=== PATIENT | male | born 1955 | race Caucasian/White ===

== ENCOUNTER → 2018-09-17 | Outpatient (CLI) | payer OTHER, SELFPAY ==
[2018-09-17 17:46] LABS: Absolute Lymphocyte Count 1.23 X10^3/uL (0.83-4.51); Absolute Neutrophil Count 3.1 X10^3/uL (2.0-7.7); Basophil# 0.05 X10^3/uL; Eosinophil# 0.09 X10^3/uL; Eosinophils% 1.9 % (0-5); Hematocrit 46.5 % (40-54); Hemoglobin 15.7 g/dL (13.0-16.5); Lymphocyte # 1.23 X10^3/ul (4.0); Lymphocyte % 25.7 % (19-41); Mean Corp Hgb Conc 33.8 g/dL (32-36); Mean Corpuscular Hgb 28.9 pg (27.0-32.0); Mean Corpuscular Volume 85.6 fL (80-94); Mean Platelet Vol. 10.9 fl (6.2-12.0); Monocyte# 0.29 X10^3/uL; Monocyte% 6.1 % (0-10); NRBC Flagged by Analyzer 0 % (0-5); Neutrophil # 3.12 X10^3/uL (2.7-7.7); Neutrophil % 65.1 % (47-70); Platelet Count 147 K/mm3 (150-450); RBC Distribution Width CV 12.7 % (11.6-14.6); Red Blood Count 5.43 M/mm3 (4.6-6.2); White Blood Count 4.8 K/mm3 (4.4-11.0)
[2018-09-17 18:08] LABS: Anion Gap 8 (5-15); BUN 18 mg/dL (7-18); BUN/Creat Ratio 18.8 RATIO (10-20); Calcium,Total 8.6 mg/dL (8.5-10.1); Chloride 106 mmol/L (98-107); Creatinine, Serum 0.96 mg/dL (0.70-1.30); EST Glomerular Filtration Rate 85 mL/min (>60); Est Glom Filt Rate - Afr Amer 102 mL/min (>60); Glucose 95 mg/dL (74-106); Potassium 4.6 mmol/L (3.5-5.1); Sodium Level 142 mmol/L (136-145)
== END | disposition home or self-care (01) ==
LOC: MFPLAB 16:50
PROVIDERS: Family Provider Family Medicine; PCP Family Medicine; Referring Provider Family Medicine; Visit Provider Family Medicine
DX: R10.32 Left lower quadrant pain (principal)
CPT/HCPCS: 36415; 80048; 85025

== ENCOUNTER → 2019-01-06 11:10 | Outpatient (CLI) | payer OTHER, SELFPAY ==
--- NOTE | 2019-01-06 11:14 | RAD_ITS ---
STUDY: X-RAY - RIGHT CALCANEUS REASON FOR EXAM: Male, 63 years old. Pain. TECHNIQUE: 2 view(s) of the calcaneus were obtained. COMPARISON: None. FINDINGS: Normal visualized calcaneus. There is a small plantar calcaneal spur. There is no demonstrated fracture. RAD/Calcaneus min 2 Views IMPRESSION: No acute pneumonia. Small plantar spur. Electronically Signed: Samy Castillo MD at 17:46 EST , Service support ,
== END ==
LOC: MTRAD 11:13
PROVIDERS: Family Provider Family Medicine; PCP Family Medicine; Referring Provider Family Medicine; Visit Provider Family Medicine
DX: M79.671 Pain in right foot (principal)
CPT/HCPCS: 73650

== ENCOUNTER → 2019-03-08 09:14 | Outpatient (CLI) | payer OTHER, SELFPAY ==
[2019-03-08 11:00] LABS: Anion Gap 6 (5-15); BUN 18 mg/dL (7-18); BUN/Creat Ratio 20.4 RATIO (10-20); Calcium,Total 8.6 mg/dL (8.5-10.1); Chloride 109 mmol/L (98-107); Cholesterol 192 mg/dL (200); Creatinine, Serum 0.88 mg/dL (0.70-1.30); EST Glomerular Filtration Rate 93 mL/min (>60); Est Glom Filt Rate - Afr Amer 113 mL/min (>60); Glucose 105 mg/dL (74-106); High Density Lipoprotein 35 mg/dL; Potassium 3.9 mmol/L (3.5-5.1); Sodium Level 140 mmol/L (136-145); Triglycerides 226 mg/dL; Very Low Density Lipoprotein 45 mg/dL (5-40)
== END ==
PROVIDERS: Family Provider Family Medicine; PCP Family Medicine; Referring Provider Family Medicine; Visit Provider Family Medicine
DX: I10 Essential (primary) hypertension (principal)
CPT/HCPCS: 36415; 80048; 80061

== ENCOUNTER → 2019-09-08 15:35 | Outpatient (CLI) | payer OTHER, SELFPAY ==
[2019-09-08 18:38] LABS: Anion Gap 8 (5-15); BUN 19 mg/dL (7-18); BUN/Creat Ratio 21.7 RATIO (10-20); Calcium,Total 8.6 mg/dL (8.5-10.1); Chloride 102 mmol/L (98-107); Cholesterol 232 mg/dL (200); Creatinine, Serum 0.88 mg/dL (0.70-1.30); EST Glomerular Filtration Rate 94 mL/min (>60); Est Glom Filt Rate - Afr Amer 114 mL/min (>60); Glucose 78 mg/dL (74-106); High Density Lipoprotein 35 mg/dL; Sodium Level 136 mmol/L (136-145); Triglycerides 309 mg/dL; Very Low Density Lipoprotein 62 mg/dL (5-40)
== END ==
LOC: MFPLAB 15:37
PROVIDERS: PCP Family Medicine; Visit Provider Family Medicine
DX: I10 Essential (primary) hypertension (principal)
CPT/HCPCS: 36415; 80048; 80061

== ENCOUNTER 2024-07-07 07:25 | Emergency (ER) | payer SELFPAY ==
[2024-07-07 07:25] VITALS: BP 175/100; PULSE 100; RESP 16; TEMP 36.5; O2SAT 98; BMI 27.9
--- NOTE | 2024-07-07 07:59 | EX.ED.DYSGE1 ---
HPI History of Present Illness Chief Complaint: Rash Detail of Chief Complaint: Rash that was first noted lower right lower extremity, leg started 2 years Informant: patient Onset/Context/Timing Onset: Month(s) Context: Sudden Onset Timing: Waxes and wanes Quality: Patient with erythematous pruritic warm raised rash presently between the k Location: Anterior right thigh Current Severity: Moderate Maximum Severity: Moderate Worsened by: Itching and warm summer months Relieved by: Nothing Associated Symptoms Associated Symptoms: None Narrative Narrative: Patient is a 68-year-old male who has not seen a physician in 2 years. Patient states he was seen by his doctor 2 years ago and placed on steroids. There is no improvement. He never followed up. He is scheduled to see a new physician middle of next month. He denies fever, chills night sweats. He denies night sweats. He is concerned he has shingles. He denies GI or symptoms. He denies myalgias or arthralgias. He denies joint swelling. He states he has not had blood work in many years. Prior similar symptoms: Yes Recent Illness/Hospitalization: No PFSH PFSH Medical History no medical history no medical history Home Medications ?Medication ?Instructions ?Recorded ?Last Taken ?Type famotidine 20 mg tablet (Pepcid) 20 mg PO BID #20 tabs 07/07/24 Unknown Rx Allergy/AdvReac Type Severity Reaction Status Date / Time No Known Allergies Allergy Verified 07/07/24 07:44 Surgical History no surgical history no surgical history Social History Smoking Status: Never smoker ROS ROS ED Constitutional Constitutional ED: Denies chills, fever(s), subjective, sweats or weight loss Cardiovascular Cardiovascular: Denies chest pain or palpitations Respiratory/Chest Respiratory/Chest: Denies cough, dyspnea or dyspnea on exertion Gastrointestinal Gastrointestinal: Denies abdominal pain, nausea or vomiting Genitourinary Genitourinary ED: Denies dysuria, hematuria or urinary frequency Musculoskeletal Musculoskeletal: Denies arthralgias or myalgias Integumentary Reports rash Neurologic Neurologic: Denies paresthesias or weakness Hematologic/Lymphatic Hematologic/Lymphatic: Reports systems reviewed and no addt'l complaints, except as documented EXAM Physical Exam Const Vital Signs: 07/07/24 07:25 Temperature 97.7 F L Temperature Source Oral Pulse Rate 100 Respiratory Rate 16 Blood Pressure 175/100 H Blood Pressure Mean 125 Pulse Ox 98 Oxygen Delivery Method Room Air Positive well nourished and well developed General Appearance ED: well developed and NAD HEENT Reports moist mucous membranes HEENT Narrative: Head is atraumatic normocephalic. Ears normal. Eyes PERRL and EOMs intact bilaterally General Eye ED: Negative for scleral icterus Neck supple and no JVD Resp normal respiratory effort Cardio regular rate and regular rhythm GI normal to inspection, nondistended, normoactive bowel sounds, non-tender, non-distended and no masses; Negative for hepatosplenomegaly Narrative: There is inguinal lymphadenopathy on the right but not on the left. Extremity Negative for normal to inspection Extremity Narrative: Rash between the knee and thigh that is erythematous warm appears inflamed. There is no lymphangitis. There is no fluctuance. It does not follow a dermatomal distribution to suggest herpes varicella-zoster. Neuro oriented x3 and CN's II-XII intact bilaterally Sensorium / Orientation: alert Psych mental status grossly normal Skin Skin Narrative: Under the extremity portion of the medical record MDM MDM MDM Narrative Medical decision making narrative: Patient with erythematous warm pruritic what appears to be inflamed rash. This may represent autoimmune disorder, local irritant, infectious etiology needs to be considered as well but less likely. Lab Data Attestation: I reviewed the patient's lab results. Lab results narrative: Patient is slightly neutropenic with a white count of 4 point 0.1. Differential is normal. H&H and indices are normal. C-reactive protein and CMP are normal. Labs: Laboratory Results - last 24 hr 07/07/24 07:49 WBC 4.1 L RBC 5.36 Hgb 16.1 Hct 45.9 MCV 85.6 MCH 30.0 MCHC 35.1 RDW Std Deviation 38.9 RDW Coeff of Andrew 12.5 Plt Count 145 L MPV 10.6 Immature Gran % (Auto) 0.200 Neut % (Auto) 62.9 Lymph % (Auto) 24.2 [place] % (Auto) 7.7 Eos % (Auto) 4.0 Baso % (Auto) 1.0 Absolute Neuts (auto) 2.6 Absolute Lymphs (auto) 0.98 Nucleated RBC % 0 Sodium 139 Potassium 4.6 Chloride 104 Carbon Dioxide 25.2 Anion Gap 10 BUN 17 Creatinine 0.77 Estim Creat Clear Calc 104.71 Est GFR (MDRD) Non-Af 99 BUN/Creatinine Ratio 21.5 H Glucose 105 H Calcium 9.2 Total Bilirubin 0.59 AST 24 ALT 26 Alkaline Phosphatase 74 C-React Prot Ext Range < 3.00 Total Protein 7.3 Albumin 4.3 Globulin 2.9 Albumin/Globulin Ratio 1.5 Treatment and Re-Evaluation :: Patient was informed of his results. He was instructed to keep his appointment with his new doctor scheduled for next month and the low white count can be worked up at that time. He was referred to Dr. Hidalgo agricultural economics teacher since the etiology of this is unknown. Since there is a pleuritic component he was placed on H2 marley to see if this helped. He was not placed on steroids since this may alter Dr. Hidalgo's ability to make diagnosis and when he was prescribed steroids in the past there was no benefit. Discharge Plan Triage Chief Complaint: Rash ED Provider: Doyle Álvarez Dx/Rx/DC Orders Clinical Impression: Pruritic erythematous rash, Elevated blood-pressure reading without diagnosis of hypertension Instructions: ED Erythema Prescriptions: New famotidine [Pepcid] 20 mg tablet 20 mg PO BID Qty: 20 0RF Primary Care Provider: Care Physician,No Primary Referrals: Tod Lopez MD [Med Staff - Active Staff] - Herson Hidalgo MD [Med Staff - Tube Cleaner] - 1 Week Activity Restrictions/Additional Instructions: Keep appointment with your new doctor. You will need to have your blood pressure rechecked since it is elevated. Contact Dr. Hidalgo's office for follow-up to determine the etiology of your rash. Print Language: Tajik Disposition Disposition: Home, Self Care
[2024-07-07 08:01] LABS: Absolute Lymphocyte Count 0.98 X10^3/uL (0.83-4.51); Absolute Neutrophil Count 2.6 X10^3/uL (2.0-7.7); Basophil# 0.04 X10^3/uL; Eosinophil# 0.16 X10^3/uL; Hematocrit 45.9 % (40-54); Hemoglobin 16.1 g/dL (13.0-16.5); Lymphocyte # 0.98 X10^3/ul (0.83-4.51); Lymphocyte % 24.2 % (19-41); Mean Corp Hgb Conc 35.1 g/dL (32-36); Mean Corpuscular Volume 85.6 fL (80-94); Mean Platelet Vol. 10.6 fl (6.2-12.0); Monocyte# 0.31 X10^3/uL; Monocyte% 7.7 % (0-10); NRBC Flagged by Analyzer 0 % (0-5); Neutrophil # 2.55 X10^3/uL (2.7-7.7); Neutrophil % 62.9 % (47-70); Platelet Count 145 K/mm3 (150-450); RBC Distribution Width CV 12.5 % (11.6-14.6); RBC Distribution Width SD 38.9 fl (35.1-43.9); Red Blood Count 5.36 M/mm3 (4.6-6.2); White Blood Count 4.1 K/mm3 (4.4-11.0)
[2024-07-07 08:51] LABS: ALB/GLOB Ratio 1.5 RATIO (0.9-2.4); AST(SGOT) 24 U/L (<=37); Alanine Aminotransfer ALT/SGPT 26 U/L (<=46); Albumin, Serum 4.3 g/dL (3.4-4.8); Alkaline Phosphatase 74 U/L (40-129); Anion Gap 10 (5-15); BUN 17 mg/dL (4-19); BUN/Creat Ratio 21.5 RATIO (10-20); CRP < 3.00 mg/L (0.0-3.0); Calcium,Total 9.2 mg/dL (7.6-11.0); Carbon Dioxide 25.2 mmol/L (21.0-32.0); Chloride 104 mmol/L (98-108); Creatinine, Serum 0.77 mg/dL (0.70-1.20); EST Glomerular Filtration Rate 99 (>60); Estimated Creatinine Clearance 104.71 ml/min (50-250); Globulin 2.9 g/dL (2.2-4.2); Glucose 105 mg/dL (70-99); Potassium 4.6 mmol/L (3.3-5.1); Protein, Total 7.3 g/dL (5.9-8.4); Sodium Level 139 mmol/L (133-145); Total Bilirubin 0.59 mg/dL (0.00-1.30)
[2024-07-07 09:38] VITALS: BP 163/91; PULSE 80; RESP 17; TEMP 36.5; O2SAT 99
== END 2024-07-07 09:39 | disposition home or self-care (01) ==
PROVIDERS: Emergency Provider Emergency Medicine; Visit Provider Emergency Medicine
DX: R21 Rash and other nonspecific skin eruption (principal); R03.0 Elevated blood-pressure reading, without diagnosis of hypertension
CPT/HCPCS: 80053; 85025; 86140; 99283